=== PATIENT | male | born 1955 | race Caucasian/White ===

== ENCOUNTER → 2019-12-17 09:35 | Outpatient (BNVA) | payer OTHER, SELFPAY | PROVIDERS: PCP Nurse Practitioner Family; Visit Provider Nurse Practitioner Family | DX: B35.6 Tinea cruris (principal); Z51.81 Encounter for therapeutic drug level monitoring; E78.5 Hyperlipidemia, unspecified; K21.9 Gastro-esophageal reflux disease without esophagitis | CPT/HCPCS: 80061; 80076 ==

== ENCOUNTER → 2020-09-22 10:25 | Outpatient (BNVA) | payer OTHER, SELFPAY | PROVIDERS: PCP Nurse Practitioner Family; Visit Provider Nurse Practitioner Family | DX: M10.9 Gout, unspecified (principal); M25.50 Pain in unspecified joint | CPT/HCPCS: 84550 ==

== ENCOUNTER 2021-07-31 09:52 | Outpatient (CLI) | payer OTHER, SELFPAY ==
[2021-07-31 10:23] VITALS: BMI 26.6
--- NOTE | 2021-07-31 10:24 | ECG_ITS ---
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 Interpretive Statements NAME OF STUDY: LEXISCAN SESTAMIBI STRESS TEST INDICATION: [Chest Pain, ] Procedure: At the baseline, the blood pressure was 134/73 mmHg with a heart rate of 59bpm. The electrocardiogram showed sinus bradycardia, normal axis with normal ST and T's. The Lexiscan was infused over a period of 20 seconds. A total of 0.4 mg of Lexiscan was infused. The stress phase was continued for a total of 5 minutes. Heart rate was at the end of stress phase was 71 bpm and a blood pressure of 105/64 mmHg. The EKG at the peak infusion revealed since normal sinus rhythm with no significant ST-T wave changes. Sestamibi was injected 20 seconds after the Lexiscan infusion. Blood pressure at the end of recovery phase was 122/66 mmHg with a heart rate of 74bpm. Conclusion: 1. Normal EKG response to Lexiscan infusion 2. No Lexiscan induced chest pain or cardiac arrhythmia. 3. Normal blood pressure and heart rate response. 4. Sestamibi/sestamibi perfusion scan pending; see separate report. Electronically Signed On 08-03-2021 10:10:20 SYSTEMS PROGRAM MANAGER by Db Cavazos M.D. [email or web address]
--- NOTE | 2021-07-31 10:24 | NMCV_ITS ---
NM cheo perf SPECT r/s* [id number] Murray Barron Age: 65 Gender: M : 1955 Exam Date: 07/31/2021 10:24 Ordering Phys: Lily Ro Technologist: HAWK Nugent Exam Location: [facility] Indications: CHEST PAIN STRESS TEST Please see separate stress test report in [facility] for full findings IMAGE PROTOCOL Rest/Stress 1 Dobutamine Day Radiopharmaceutical Dose (mCi) Administration Site Administered by Rest: Tc-99m 10.4 IV HAWK Lal Sestamibi Stress:Tc-99m 32.6 IV HAWK Nugent Sestamiheather Rest: 31-Jul-2021 60 Discovery 630 Stress: 31-Jul-2021 30 Discovery 630 0.4mg Lexiscan. Images obtained in supine and prone position. SPECT RESULTS Technical Quality: Excellent Raw Data Analysis: Normal Image Corrections: No attenuation or motion correction applied Summed Stress Score: 3 Summed Rest Score: 0 Summed Difference Score: 3 PERFUSION FINDINGS There is small to medium sized reversible perfusion defect in the inferior and inferolateral wall. This is consistent with ischemia in this territory. FUNCTIONAL RESULTS (calculated via Gated SPECT) Stress Image LV EF (%): 57 Stress EDV (mL):112 TID: 1.01 Stress ESV (mL):48 FUNCTIONAL FINDINGS: There is normal left ventricular systolic function. IMPRESSIONS 1. Abnormal myocardial perfusion imaging with ischemia noted in inferior and inferolateral page. 2. LV systolic function is normal Db Cavazos MD (Electronically Signed) Final Date: 01 August 2021 20:10 S
[2021-07-31] MEDS: regadenoson 0.4 Mg/5 ml Syringe IVP (12:23)
[2021-07-31 12:26] VITALS: BP 111/67; PULSE 72
== END 2021-07-31 09:53 | disposition home or self-care (01) ==
LOC: CDL 09:54
PROVIDERS: PCP Registered Nurse; Visit Provider Nurse Practitioner Family
DX: R07.9 Chest pain, unspecified (principal)
CPT/HCPCS: 78452; 93017; A9500; J2785

== ENCOUNTER → 2021-09-04 10:49 | Outpatient (BNVA) | payer OTHER, SELFPAY | PROVIDERS: PCP Registered Nurse; Visit Provider Internal Medicine Cardiovascular Disease | DX: Z01.812 Encounter for preprocedural laboratory examination (principal); Z20.822 Contact with and (suspected) exposure to COVID-19 | CPT/HCPCS: 36415; 80048; 85025; 85610; 87635 ==

== ENCOUNTER 2021-09-10 14:24 | Observation (INO) | payer OTHER, SELFPAY ==
[2021-09-04 10:37] LABS: Basophils # 0.1 10^3/uL (0.0-0.1); Basophils % 1.2 %; Eosinophils # 0.3 10^3/uL (0.0-0.8); Eosinophils % 4.6 %; Hematocrit 46.1 % (42.0-52.0); Hemoglobin 15.6 g/dL (11.7-16.6); Lymphocytes # 1.7 10^3/uL (0.8-4.8); Lymphocytes % 29.5 %; Mean Corpuscular HGB Conc 33.8 g/dL (30.0-36.0); Mean Corpuscular Volume 91.5 fl (80-94); Mean Platelet Volume 9.3 fL (7.4-10.4); Monocytes # 0.7 10^3/uL (0.2-0.9); Monocytes % 11.8 %; Neutrophils # 3.09 10^3/uL (1.8-7.7); Neutrophils % 52.6 %; Nucleated Red Blood Cells % 0 %; Platelet Count 253 10^3/cmm (130-400); Red Blood Count 5.04 10^6/uL (4.1-5.3); Red Cell Distribution Width 12.2 % (12.1-15.1); White Blood Count 5.9 10^3/uL (4.0-10.0)
[2021-09-04 10:52] LABS: INR 1.02 (0.83-1.21); Prothrombin Time (Patient) 13.8 Seconds (12.0-15.1)
[2021-09-04 10:56] LABS: Anion Gap 11.3 (5-19); Blood Urea Nitrogen 12 mg/dL (8-23); Calcium 8.9 mg/dL (8.5-10.5); Carbon Dioxide 28 mmol/L (22-29); Chloride 102 mmol/L (98-107); Glomerular Filtration Rate 136.1 mL/min (90-130); Glucose 110 mg/dL (65-115); Osmolality Calculated 284 mOsm/kg (285-295); Potassium 4.3 mmol/L (3.5-5.1); Sodium 137 mmol/L (136-145)
[2021-09-10] VITALS (37 sets, daily range): BP systolic 103–138; BP diastolic 55–87; PULSE 41–72; RESP 7–29; TEMP 36.7–37; O2SAT 92–95; BMI 26.1
[2021-09-10] MEDS: diphenhydrAMINE 50 mg Capsule PO (09:55)
--- NOTE | 2021-09-10 10:00 | XACV_ITS ---
Ht: 175 cm Wt: 80 kg BSA: 1.99 m2 Gender: Male : 1955 Any Known Allergies: No known allergies Exam Priority: Routine Procedure(s): Procedure Description: Diagnostic procedure Procedure Description: PCI procedure Procedure Description: Left Heart Catheterization Procedure Description: Drug Eluting Coronary Stent Procedure Description: PTCA Cesar CROWDER; Diagnostic Cath Status: Elective Diagnostic Findings * Left Main has no disease. * Mid Left Anterior Descending: luminal irregularities 20% stenosis, KARLO: 3 flow. * Proximal Right Coronary Artery to Mid Right Coronary Artery: total occlusion, KARLO: 0 flow. * Mid Circumflex: severe 90% stenosis, KARLO: 0 flow. * First Obtuse Marginal Branch Segment: significant 80% stenosis, KARLO: 0 flow. * Coronary angiography shows right dominance. Interventional Findings * Mid Circumflex: 90% stenosis treated with a AB TREK 2.50X12 RX BALLOON, BELEM Banks BRIAN 3.5X18 MTATHEW, and MDSilvana FITZGERALD EUPHORA RX 3.00C46NT BALLOON. 0% residual stenosis, KARLO: 3 flow. * First Obtuse Marginal Branch Segment: 80% stenosis treated with a AB MINI TREK 2.00X12 RX BALLOON. 0% residual stenosis, KARLO: 3 flow. Conclusions 1. Mid circumflex was fixed for high-grade 90% stenosis, moderate size and caliber obtuse marginal was jailed. We were able to cross through the stent struts and ballooned the ostium of the obtuse marginal since there was a plaque shift with more than 80% ostial significant lesion. After balloon angioplasty 70 2. - 3. 80% lesion improved to 20% 4. . Excellent angiographic result with KARLO-3 flow was achieved 5. . 6. There is total occlusion coronary artery disease with three vessel disease. 7. Mid Circumflex was treated with a Balloon, Drug Eluting Stent, and Balloon. 8. First Obtuse Marginal Branch Segment was treated with a Balloon. Recommendations * Continue current medical management and risk factor modification. Interventional RX Recommendation: PCI w/o planned CABG Diagnostic RX Recommendation: PCI w/o planned CABG Clinical Evaluation EBL: 5mL-10mL Procedural Details Procedure Consent Obtained. Current Diagnosis : Chest Pain. Pre-Procedure Time Out. Identified patient by full name and date of as verbalized by the patient/guarantor. Does the consent match the physician's order: Yes. Accurate & Complete Informed Consent: Yes. Inpatient/Outpatient History & Physical on Chart: Yes. If H&P is completed, is and addenduem needed: Yes; If yes, is the addendum complete: N/A. Visualize and Verify Site with Patient/Guarantor: N/A. Relevant Radiology Images available: Yes. Pre-op teaching completed and patient verbalized understanding. The risks, benefits, and alternatives of sedation and/or procedure were discussed by physician. The patient agrees to continue. Procedure started. [facility] Clinical Fraility Score: 3: Managing Well. Maintenance Chief Indications: Suspected CAD. Chest Pain Symptom Assessment: Typical Angina Symptoms. Correct patient, site and procedure confirmed by cath team. Current diagnosis: Chest Pain. PERRLA. 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 Lungs clear x 5 lobes. A 20 gauge IV was started in the right anticubital using aseptic technique. IV Fluids: 0.9% NaCl at KVO. 0 mL infused prior to seed laboratory technician. Pre Procedural Pulses: bilateral dorsalis pedis was 3+. Pre Procedural Pulses: bilateral posterior tibial was 3+. Pre Procedural Pulses: bilateral radial was 3+. Oxygen started at 2liters/min via nasal canula. right groin was prepped with chloroprep then draped in the usual sterile fashion. right radial was prepped with chloroprep then draped in the usual sterile fashion. Physician notified. Baseline sample Acquired. HR: 43 BPM. Physician arrived. RT Jayla(R) was relieved by RT Christian as monitoring person. Physician scrubbed in. Immediate Pre-Procedure Time Out. Correct Patient: Yes; Correct Procedure: Yes; Correct Site: Yes; Correct Patient Position: Yes; Correct Supplies: Yes; Dried Flammable Prep: Yes; Blood Products Available: N/A;. Lidocaine 1% infiltrated to the right radial. Arterial access obtained. A 5 saudi arabian TIG catheter in over wire. Multiple views taken of left coronary artery. Catheter out. 6 saudi arabian XB 3 guide catheter was inserted over the wire. [place] guidewire was advanced through the guide catheter to lesion in the mid Circ. Inflation number : 1 A AB TREK 2.50X12 RX BALLOON was prepped and advanced across the Mid CX , then inflated to 14 MALLORIE for 0:19 seconds. Inflation number: 2 The AB TREK 2.50X12 RX BALLOON was reinflated across the Mid CX, to 14 MALLORIE for 0:17 seconds. Balloon out. Inflation Number : 3 A MDT R BRIAN 3.5X18 MATTHEW -Lot Number# [id number] exp date: 01-27-2024 was prepped and advanced across the Mid CX. The stent was deployed at 14 MALLORIE for 0:27 seconds. Stent balloon out over wire. Inflation number : 1 A AB MINI TREK 2.00X12 RX BALLOON was prepped and advanced across the 1st Ob Pili , then inflated to 8 MALLORIE for 0:15 seconds. Inflation number: 2 The AB MINI TREK 2.00X12 RX BALLOON was reinflated across the 1st Ob Pili, to 8 MALLORIE for 0:12 seconds. Balloon out. Inflation number : 4 A MDT NC EUPHORA RX 3.89J05UT BALLOON was prepped and advanced across the Mid CX , then inflated to 8 MALLORIE for 0:15 seconds. Inflation number: 5 The MDT NC EUPHORA RX 3.48J34XH BALLOON was reinflated across the Mid CX, to 12 MALLORIE for 0:21 seconds. Balloon out. 6 saudi arabian JR 4 guide catheter was inserted over the wire. SVG to RCA occluded. Run[place] guidewire was advanced through the guide catheter to lesion in the mid RCA. Wire out. Guide catheter out. ACT drawn. Results 184 seconds. Therapeutic limits - pre-heparin administration 90-150 seconds and monitoring heparin during a vascular procedure >250 seconds. TR band placed. Hemostasis obtained. Post Procedure: Pulses reassessed and unchanged. PERRLA. 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 No VTE prophylaxis required. Contrast type used: Omnipaque 300 mgI/mL, 500 mL bottle. Contrast Material : Omnipaque 233 ml. Medication's Wasted: Nitro = 49.4 mg. Medication's Wasted: Heparin = 2000 units. Medication's Wasted: Other = fentanyl 25 mg. Total IV fluids: 123 mL. PCI Indication: significant mid CX. Post-op diagnosis: chronic and occluded mid RCA. Complications: none. Estimated blood loss: 5mL-10mL. Responsiveness - Normal response to verbal stimuli; alert and oriented, PERRLA. Airway - Unaffected, no intervention required; spontaneous ventilation. Circulation: W/N/L, pulses unchanged. Nausea/Vomiting: N/A. Procedure completed. A TR Band was successful obtaining hemostatsis at the Right Radial artery insertion site. Patient transferred by bed to 1st floor. Vital chart was stopped. Access Site Site: Right Radial artery Sheath Size: 6 Fr Hemostasis Method: TR Band Hemostasis Success: Successful Procedure Medications Start: 1:05 PM Stop: 1:05 PM Medication: Versed Amount: 1 mg Route: I.V. Start: 1:05 PM Stop: 1:05 PM Medication: Fentanyl Amount: 50 mcg Route: I.V. Start: 1:15 PM Stop: 1:15 PM Medication: Nitrogylcerin Amount: 200 mcg Route: I.A. Start: 1:23 PM Stop: 1:23 PM Medication: Heparin Amount: 5000 units Route: I.V. Start: 1:23 PM Stop: 1:23 PM Medication: Heparin Amount: 4000 units Route: I.V. Start: 1:30 PM Stop: 1:30 PM Medication: Aggrastat 12.5 mg/250 mL Amount: 40 ml Route: I.V. bolus Start: 1:30 PM Stop: 1:30 PM Medication: Aggrastat 12.5 mg/250 mL Amount: 14.4 ml/hr Route: I.V. drip Start: 1:46 PM Stop: 1:46 PM Medication: Versed Amount: 1 mg Route: I.V. Start: 1:46 PM Stop: 1:46 PM Medication: Fentanyl Amount: 25 mcg Route: I.V. Start: 1:55 PM Stop: 1:55 PM Medication: Nitrogylcerin Amount: 200 mcg Route: I.A. Start: 2:12 PM Stop: 2:12 PM Medication: Heparin Amount: 3000 units Route: I.V. Start: 2:18 PM Stop: 2:18 PM Medication: Plavix Amount: 600 mg Route: P.O. Start: 2:19 PM Stop: 2:19 PM Medication: Aspirin Amount: 325 mg Route: P.O. I, the attending physician, have reviewed and verified all procedure medications. Yes, all medications given per verbal order History/Risk Factors Hypertension: Yes Dyslipidemia: No Peripheral Arterial Disease (PAD): No Myocardial Infarction (RI): No Obesity: No Renal Disease: No Tobacco Use: Current/Recent(w/in 1 year) Prior Interventions PCI: No CABG: No Valve Surgery: No Report Signatures Finalized by Madi Guerrero MD on 09/15/2021 08:07 PM
--- NOTE | 2021-09-10 13:04 | W.PM.OPSUD ---
Surgery/Procedure H&P Update DATE OF PROCEDURE: September 10, 2021 DATE H&P PERFORMED: 08/24/21 H&P UPDATE INFORMATION: I have reviewed H&P completed within last 30 days, I have examined patient prior to procedure and No changes to prior documentation PREOP DIAGNOSIS: Chest pain/abnormal stress test PLANNED PROCEDURE: Operation Date: 09/10/21 10:00 Proposed Procedures p Cardiac Catheterization(Left) - Madi Guerrero MD PATIENT REASSESSED PRIOR TO SEDATION, WITH NO CHANGE NOTED: Yes PHYSICAL EXAM: alert, oriented x 3 and clear to auscultation bilaterally AIRWAY EVAL/ANESTHESIA PLAN: ASA II and Risks, benefits & alternatives of sedation and/or procedure discussed ADDITIONAL INFORMATION: Patient has been explained all risk benefit and alternative for the procedure. Patient understand risk for contrast-induced nephropathy stroke major minor bleed urgent emergent bypass surgery vascular surgery transfusion he would like to proceed with it, he is a candidate for DAPT
--- NOTE | 2021-09-10 16:28 | PC.NURSE ---
Aggrastat drip turned off per written order from cardiac cath. Pls see cardiac crime laboratory analyst notes. TR band intact. no hematoma or bleeding. radial pulse is palpable +3.
[2021-09-10] MEDS: isosorbide mononitrate ER 30 mg Tablet 15 MG PO (17:32)
--- NOTE | 2021-09-10 19:20 | PC.NURSE ---
Shift Note 1415pm- Pt arrived from label pinker via wheelchair. Denies any chest pain or discomfort post cardiac cath. TR band intact on right wrist. No hematoma, swelling or bleeding. Radial pulse is palpable+3. Aggrastat drip running as ordered. IVF at 75 running on right FA IV as ordered. 1530 pm- started to let air out from TR band. Pt started to ooze some blood. Instill 3 ml of air. No hematoma. 1545 pm- remove 1 ml air out. Pt strarted to have minimal ooze. No hematoma. Frequent safety and comfort rounds continue. Orders and/or nursing care completed as indicated. Patient monitored for response to intervention and treatment(s). Education provided includes[]. Patient and/or primary care sales representative [ResponseToTeaching]. Will continue to monitor.
--- NOTE | 2021-09-10 22:40 | PC.NURSE ---
TR band removed from right wrist at 2230. Air was removed slowly due to slight oozing. Dressing placed. Dressing is currently c/d/i. No oozing or hematoma noted at this time. Patient educated on post-cath activity restrictions and verbalized understanding. VSS. Radial pulse present. Distal skin color and temp WNL.
[2021-09-11 00:21] VITALS: BP 117/57; PULSE 41; RESP 9
[2021-09-11 03:12] VITALS: PULSE 45
[2021-09-11 03:38] LABS: Basophils # 0.1 10^3/uL (0.0-0.1); Basophils % 1.1 %; Eosinophils # 0.5 10^3/uL (0.0-0.8); Eosinophils % 5.7 %; Hematocrit 43.1 % (42.0-52.0); Hemoglobin 14.5 g/dL (11.7-16.6); Lymphocytes # 2.4 10^3/uL (0.8-4.8); Lymphocytes % 25.7 %; Mean Corpuscular HGB Conc 33.6 g/dL (30.0-36.0); Mean Corpuscular Hemoglobin 30.7 pg (28.0-34.0); Mean Corpuscular Volume 91.3 fl (80-94); Mean Platelet Volume 9.7 fL (7.4-10.4); Monocytes # 0.9 10^3/uL (0.2-0.9); Monocytes % 9.9 %; Neutrophils # 5.37 10^3/uL (1.8-7.7); Neutrophils % 57.2 %; Nucleated Red Blood Cells % 0 %; Platelet Count 219 10^3/cmm (130-400); Red Blood Count 4.72 10^6/uL (4.1-5.3); Red Cell Distribution Width 12.5 % (12.1-15.1); White Blood Count 9.4 10^3/uL (4.0-10.0)
--- NOTE | 2021-09-11 03:40 | PC.NURSE ---
Right wrist site/dressing WNL.
[2021-09-11 03:48] VITALS: BP 121/67; PULSE 48; RESP 18; TEMP 36.6; O2SAT 95
[2021-09-11 04:03] LABS: Anion Gap 14.9 (5-19); Blood Urea Nitrogen 19 mg/dL (8-23); Calcium 8.1 mg/dL (8.5-10.5); Carbon Dioxide 22 mmol/L (22-29); Chloride 105 mmol/L (98-107); Glomerular Filtration Rate 136.1 mL/min (90-130); Glucose 96 mg/dL (65-115); Osmolality Calculated 288 mOsm/kg (285-295); Potassium 3.9 mmol/L (3.5-5.1); Sodium 138 mmol/L (136-145)
[2021-09-11 07:52] VITALS: BP 124/70; PULSE 60; RESP 19; TEMP 36.6; O2SAT 95
[2021-09-11] MEDS: isosorbide mononitrate ER 30 mg Tablet 15 MG PO (08:59)
[2021-09-11] MEDS: clopidogrel 75 mg Tablet PO (09:00)
[2021-09-11] MEDS: aspirin 81 mg EC Tablet PO (09:00)
[2021-09-11] MEDS: atorvastatin 40 mg Tablet 20 MG PO (09:00)
--- NOTE | 2021-09-11 10:31 | PM.SDS ---
Short Stay Summary Providers Date of Admit/Discharge: 09/15/21 Attending Provider: Madi Guerrero MD Primary Care Provider: JOSE ARMANDO Momin Chief Complaint: [id number]/ [id number] abnormal result of other cardiovas HPI History of Present Illness Murray Barron is a 65 year old male past medical history significant for hypertension hyperlipidemia for abnormal stress test and worsening of shortness of breath along with chest pain underwent angiogram he was noted to have chronically occluded mid RCA while significant mid 80 to 90% circumflex stenosis. It was treated with drug-eluting stent. RCA was thought to be chronically occluded therefore decided to manage it medically. Patient tolerated procedure well and recovered over the next 24 hours. He is doing fine from cardiovascular perspective and being transferred home. Review of Systems Musc: Denies: joint warmth Home Meds/Allergies Home Medications and Allergies Home Medications Medication Instructions Recorded Confirmed Type vitamin D3 250 mcg (10,000 1 cap PO DAILY 08/24/21 09/09/21 History unit)-vitamin K2 45 mcg capsule Allergies Allergy/AdvReac Type Severity Reaction Status Date / Time No Known Allergies Allergy Verified 07/24/21 11:01 PFSH Acute PFSH: Medical History (Updated 09/12/21 @ 00:01 by ) Essential hypertension History of neuropathy Tobacco abuse Social History Smoking and tobacco status: current every day smoker (Chew) smokeless tobacco Second hand smoke exposure: Yes Alcohol intake: never Adopted: No Caregiver/support person: No Lives independently: No Current occupational status: employed Sexually active: Yes Current gender identity: Male Dietary Habits: Current diet type/program: regular Vitals/I&O/Wt Last Vital Signs Temp 97.9 F 09/11/21 07:52 Pulse 60 09/11/21 07:52 Resp 19 H 09/11/21 07:52 BP 124/70 09/11/21 07:52 Pulse Ox 95 09/11/21 07:52 09/10/21 09/11/21 09/11/21 22:59 06:59 14:59 Intake Total 360 / 360 300 / 660 245 / 245 Output Total 750 / 750 Balance 360 / 360 300 / 660 -505 / -505 Weight last 48 hrs Weight 177 lb Physical Exam Narrative: EXAM NARRATIVE: GENERAL: Patient is alert, awake and oriented x3. NECK: No jugular vein distension. HEENT: No cyanosis. No icterus. No pallor. HEART: Regular S1 and S2. No murmur, rub or gallop. LUNGS: Clear to auscultate bilaterally. ABDOMEN: Soft, nontender and nondistended. Positive bowel sounds. No guarding, rebound or tenderness. CENTRAL NERVOUS SYSTEM: Grossly nonfocal. EXTREMITIES: Lower extremities without edema bilaterally. 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 Routin e Exams 09/10/21 10:00 Taken Discharge Plan Discharge Patient Disposition: Home Condition: Stable Prescriptions: New clopidogrel 75 mg Tablet 75 mg PO DAILY Qty: 90 RF: 4 Continued vitamin D3-vitamin K2 250 mcg (10,000 unit)-45 mcg capsule 1 cap PO DAILY RF: 0 isosorbide mononitrate 30 mg tablet extended release 24 hr 15 mg PO BID Qty: 90 RF: 3 aspirin [Adult Low Dose Aspirin] 81 mg tablet,delayed release (DR/EC) 81 mg PO DAILY Qty: 90 RF: 3 nitroglycerin [Nitrostat] 0.4 mg tablet, sublingual 0.4 mg sublingual Q5M PRN (Reason: chest pain) Qty: 25 RF: 3 simvastatin 40 mg tablet 40 mg PO DAILY Qty: 90 RF: 3 Discontinued omeprazole 20 mg capsule,delayed release(DR/EC) See Rx Instructions .ROUTE .COMPLEX Qty: 90 RF: 4 Discharge Orders: Discharge Order (Routine); Ordered 09/11/21 Ordered By: Madi Guerrero Referrals: Madi Guerrero MD [Physician] - 11/18/21 2:30 pm (You will have an appointment with Dr. Guerrero on November 18 at 2:30 PM. If you need to reschedule the appointment pls call them.) Chery Patiño FNP [Nurse Practitioner] - 09/17/21 2:00 pm (You will have a follow-up appointment with Chery Patiño on September 17 at 2 pm. Pls call the clinic if you need to reschedule your appointment.) Discharge Diet: Diabetic Discharge Activity: Increase activity as tolerated Patient Instructions: Clopidogrel (By mouth), Coronary Angioplasty (DC), Post Angiogram Home Care Instructions Activity Restrictions/Additional Instructions: Follow-up with Ms. Chery Patiño in follow-up with Dr. Guerrero in 6 to 8 weeks. Please do not interrupt clopidogrel aspirin for at least 2-year. Attestations Medical Necessity Statement*: Patient can be discharged home. Time Spent in Patient Care*: less than 30 min Specific Discharge Activities: Specific discharge activities: educating patient Quality Metrics Clinical Quality Measures: During this hospital stay, did patient experience: None Coding Level of Care Code Established Pt Acute Dipper Machine Operator for Chg Fwd Patient Type Established History Detailed Exam Detailed Medical Decision Making Moderate Complexity
[2021-09-11 12:00] VITALS: BP 137/73; PULSE 79; RESP 20; O2SAT 95
--- NOTE | 2021-09-11 12:48 | PC.CHAP ---
Pastoral Care Encounter/Spiritual Assessment Type of Contact [] Declined steam plant control room operator visit [] Patient/Family/Request visit [] Outpatient visit [] Follow-up visit [] Physician referral [] Code/Alert [xx] Routine visit [] Staff referral [] Actively dying [] Patient sleeping [] Family support [] [] Out of room [] Palliative care [] [] Receiving care in room [] Pre-surgical visit [] Trauma [] Long length of stay [] ICU visit [] Other: Relational/Emotional Strength [xx] Patient feels connected with others/family/visitors/staff [] Distress [] Loneliness/isolation [] Abandonment Spirituality of Patient [] Person of [place] [] Attends Lutheran of their [place] [xx] Believes in Prayer [] Reads Bible or Denominational materials [] There are Spiritual issues to be addressed [employer]er Interventions [xx] Prayer [xx] Active listening [xx] Non-anxious presence [] Spiritual/emotional support [] Crisis/trauma care [] Spiritual counseling [] Bereavement support [] Provided bereavement packet [] Provided Bible/devotional materials [] Provided toy/stuffed animal, coloring book to patient or family member [] Provided Communion [] Anointing/Leiter [] Salvation [xx] Completed spiritual assessment [] Other: Impact on Illness or Injury [] Angry [] Fearful [] Anxious [] Often cries [] Exhaustion [] Unable to work [] Unable to attend episcopalian [] Unable to walk/stand [] Unable to read [] Unable to drive [] Unable to eat/drink [] Unable to sleep [] Unable to be with family [] Patient intubated [] Other: Summary Patient's was present. They are expecting patient to be discharged so she can take him home. Time spent with patient 3 minutes
--- NOTE | 2021-09-11 13:20 | PC.NURSE ---
Pt discharged home. IV removed no redness or swelling noted. Pts discharge instructions given along with prescriptions and follow up appointments. Pt had no c/o pain or discomfort at the time of discharge.
== END 2021-09-11 13:10 | disposition home or self-care (01) ==
LOC: CSU 14:24
PROVIDERS: Admitting Provider Internal Medicine Cardiovascular Disease; PCP Registered Nurse; Visit Provider Internal Medicine Cardiovascular Disease
DX: I25.10 Atherosclerotic heart disease of native coronary artery without angina pectoris (principal); R07.9 Chest pain, unspecified; R94.39 Abnormal result of other cardiovascular function study; I10 Essential (primary) hypertension; E78.5 Hyperlipidemia, unspecified; F17.220 Nicotine dependence, chewing tobacco, uncomplicated; Z79.82 Long term (current) use of aspirin
CPT/HCPCS: 36415; 80048; 85025; 85347; 93455; C1725; C1769; C1874; C1887; C1894; C9600; G0378; J1644; J2250; J3010; J3246; J3490; J7030; Q0163; Q9967

== ENCOUNTER → 2021-09-17 14:53 | Outpatient (BNVA) | payer OTHER, SELFPAY | PROVIDERS: PCP Registered Nurse; Visit Provider Nurse Practitioner Family | DX: I25.10 Atherosclerotic heart disease of native coronary artery without angina pectoris (principal) | CPT/HCPCS: 80048 ==

== ENCOUNTER → 2021-12-11 10:03 | Outpatient (BNVA) | payer OTHER, SELFPAY | PROVIDERS: PCP Registered Nurse; Visit Provider Internal Medicine Cardiovascular Disease | DX: I25.119 Atherosclerotic heart disease of native coronary artery with unspecified angina pectoris (principal); I10 Essential (primary) hypertension; E78.5 Hyperlipidemia, unspecified; Z72.0 Tobacco use | CPT/HCPCS: 80061; 80076 ==

== ENCOUNTER 2022-08-05 08:17 | Day surgery (SDC) | payer OTHER, SELFPAY ==
[2022-08-04 13:27] VITALS: BMI 26.9
[2022-08-05 08:39] VITALS: BP 131/72; PULSE 52; RESP 16; TEMP 36.6; O2SAT 98
[2022-08-05] MEDS: sodium chloride 0.9% 1,000 ML 30 ML IV (08:53)
--- NOTE | 2022-08-05 10:37 | ANES.PREANE2 ---
Pre-Anesthetic Assessment Height/Weight: Height 1.75 m Weight 82.554 kg Temp Pulse Resp BP Pulse Ox O2 Del Method 97.8 F 52 L 16 131/72 98 08/05/22 08:39 08/05/22 08:39 08/05/22 08:39 08/05/22 08:39 08/05/22 08:39 08/05/22 08:39 Preop Diagnosis: Excisional biopsy lower gingivobuccal sulcus oral tissue lesion Operation Date: 08/05/22 09:50 Proposed Procedures p excision of gingival buccal sulcus lower lip lesion with frozen section 54434,K13.70 possible frozen biopsy(Not Applicable) - Sal Pineda MD Familial anesthetic complications: none Was Beta Nissa taken within 24 hours: N/A Was Clonidine taken within 24 hours: N/A Last intake: Intake Last Liquid Date 08/04/22 Last Liquid Time 18:00 Last Solid Date 08/04/22 Last Solid Time 18:00 Last Intake: 18:00 Social Alcohol (6pk day) and Tobacco (chew 50+ years) Exam alert, oriented x 3, clear to auscultation bilaterally and regular rate & rhythm Airway Submandibular: within normal limits Cervical ROM: within normal limits Mallampati: Class II Dentition: false Pulmonary None reported CV/HEM Coronary Artery Disease, Hypertension and Myocardial Infarction (PTCA 2020 no cp/sob since) None reported Hepatic None reported GI Gastroesophageal Reflux Disease (occ food related) Metabolic None reported Musc/skel Lower Back Pain and Osteoarthritis/DJD Neuropsych None reported Anesthetic Plan ASA status: 3 Anesthesia: General Risk of > 500 ml blood loss (7ml/kg in children): No Medications/Allergies Home Medications Medication Instructions Recorded Confirmed Last Taken Type aspirin 81 mg tablet,delayed 81 mg PO DAILY #90 tabs 08/24/21 08/05/22 08/01/22 Rx release (Adult Low Dose Aspirin) isosorbide mononitrate 30 mg 15 mg PO BID #90 tabs 08/24/21 08/05/22 08/04/22 Rx tablet,extended release 24 hr nitroglycerin 0.4 mg sublingual 0.4 mg sublingual Q5M PRN chest 08/24/21 08/04/22 09/09/21 Rx tablet (Nitrostat) pain #25 tabs vitamin D3 250 mcg (10,000 1 cap PO DAILY 08/24/21 08/05/22 08/04/22 History unit)-vitamin K2 45 mcg capsule clopidogrel 75 mg tablet 75 mg PO DAILY #90 tabs 09/11/21 08/04/22 08/01/22 Rx rosuvastatin 40 mg tablet (Crestor) 40 mg PO DAILY #90 tabs 12/11/21 08/05/22 08/04/22 Rx pantoprazole 20 mg tablet,delayed 20 mg PO DAILY #90 tabs 06/18/22 08/05/22 08/04/22 Rx release hydrocodone 5 mg-acetaminophen 300 1 tab PO Q4H PRN pain #30 tabs 08/05/22 Unknown Rx mg tablet Allergies Allergy/AdvReac Type Severity Reaction Status Date / Time No Known Allergies Allergy Verified 08/04/22 13:24 Current Medications Generic Name Dose Route Start Last Admin Trade Name Freq PRN Reason Stop Dose Admin Sodium Chloride 1,000 mls @ 30 mls/hr 08/05/22 08:30 08/05/22 08:53 Sodium Chloride 0.9% IV 08/06/22 08:29 30 mls/hr .Q24H TAI Administration PFSH Anesthesia Medical History Arthritis Atherosclerosis of coronary artery Dyslipidemia Essential hypertension History of neuropathy Tobacco abuse Social History Smoking and tobacco status: current every day smoker (Chew) smokeless tobacco Second hand smoke exposure: Yes Alcohol intake: never Adopted: No Caregiver/support person: No Lives independently: No Current occupational status: employed Sexually active: Yes Current gender identity: Male Data Anesthesia Cardiac Studies: Sestamibi Stress Test (Cardiology) 07/31/21
--- NOTE | 2022-08-05 10:37 | W.PM.OPSUD ---
Surgery/Procedure H&P Update DATE OF PROCEDURE: August 05, 2022 DATE H&P PERFORMED: 07/26/70 H&P UPDATE INFORMATION: I have reviewed H&P completed within last 30 days, I have examined patient prior to procedure and No changes to prior documentation CHANGES TO PREVIOUS DOCUMENTATION: No changes PREOP DIAGNOSIS: Excisional biopsy lower gingivobuccal sulcus oral tissue lesion PRIMARY INDICATION FOR PROCEDURE: Abnormal lesion anterior gingival buccal sulcus adjacent to dental post PLANNED PROCEDURE: Operation Date: 08/05/22 09:50 Proposed Procedures p excision of gingival buccal sulcus lower lip lesion with frozen section 82781,K13.70 possible frozen biopsy(Not Applicable) - Sal Pineda MD
[2022-08-05] MEDS: ceFAZolin 2,000 MG in sodium chloride 0.9% (plus) 50 ML 100 MG IV (10:49)
--- NOTE | 2022-08-05 11:43 | P.OP_ITS ---
Operative Report Date of procedure: August 05, 2022 Pre-op diagnosis: Preop Diagnosis Excisional biopsy lower gingivobuccal sulcus oral tissue lesion Post-op diagnosis: Same Post-op findings: Indurated indented mucosal lesion with frozen section showing chronic inflammation and no malignancy. Procedure done: Excision of inner lower lip lesion Implants: No implants Specimens removed/disposition: Same Pathology: Inner surface of lower lip with indentation and discoloration anterior to dental post. Frozen section returned as chronic inflammation with no malignancy Surgeon: Sal Pineda MD Anesthesia: General and Local Estimated blood loss: 10 mL Complications: No complications encountered Findings: Patient has a whitish discolored raised indurated and indented anterior inner lower lip lesion directly across from an irregular dental post that extends more anteriorly rather than superiorly. With the patient chewing tobacco is felt that this needed to be checked for potential malignancy. Brief History: 66-year-old male patient who chews tobacco and is edentulous and has pins or posts for his lower dentition to snap onto. The anteriormost post in the midline extends more anteriorly and it has caused an indentation with what appears to be inflammation and probable fibroma on the inner surface of the lower lip mucosa near the gingivobuccal sulcus. This will be excised for diagnostic purposes. The procedure its risks and complications were explained and understood in detail. Informed consent was granted and witnessed. Risks included bleeding infection numbness scarring swelling bruising recurrence and need for additional treatment. Anesthetic risks also understood. Procedure: Description of procedure: The patient was placed on the operating table in the supine position. Adequate general endotracheal tube anesthesia was obtained. He was repositioned into a semirecumbent position. A timeout was accomplished identifying the patient date of plan procedure allergies fire risk and medications given. With all in agreement the procedure continued. The patient had his inner lower lip examined and infiltration with 2% Xylocaine with 1- 100,000 epinephrine around the lesion and numbing the mental nerves in a field block. A total of 5.1 mL of 2% Xylocaine with 1 100,000 epinephrine was utilized. Patient was then prepped and draped in usual fashion. After several minutes a 15 blade was used to excise completely around the whitish firm indented tissue which caused greater than 1 cm defect. This was sent for frozen section diagnosis. While that was pending pressure was applied to the defect. Bleeding was under control with the epinephrine and the pressure. When the specimen returned as chronic inflammation with no evidence of malignancy found the defect was closed using 3-0 Vicryl suture. An inferior gap was left open to prevent hematoma formation. The mouth was suctioned and the face cleansed and the patient was returned to anesthesia for wake-up and extubation. The patient tolerated the procedure well had an estimated blood loss of 10 mL and arrived in recovery in stable condition.
[2022-08-05 11:50] VITALS: BP 142/65; PULSE 72; RESP 16; TEMP 36.6; O2SAT 96
[2022-08-05 11:55] VITALS: BP 134/64; PULSE 64; RESP 20; O2SAT 97
[2022-08-05 12:00] VITALS: BP 117/64; PULSE 63; RESP 22; TEMP 36.7; O2SAT 94
[2022-08-05 12:18] VITALS: BP 124/62; PULSE 67; RESP 18; TEMP 36.8; O2SAT 94
[2022-08-05 12:39] VITALS: BP 111/61; PULSE 94; RESP 18; TEMP 36.7; O2SAT 94
--- NOTE | 2022-08-05 15:28 | ANE.PACU2 ---
Inpatient post-anesthesia follow up: Airway intact: Yes Vital signs: Temperature 98.0 F Pulse Rate 94 Respiratory Rate 18 Blood Pressure 111/61 Pulse Oximetry 94 Oxygen Delivery Me thod Room Air Oxygen Flow Rate 7 Fraction of Inspir ed Oxygen Hydration adequate: Yes Nausea and vomiting: No Pain level: 2 Mental status: Baseline
== END 2022-08-05 12:45 | disposition home or self-care (01) ==
PROVIDERS: PCP Registered Nurse; Visit Provider Otolaryngology
PROC: (CPT 40810; principal; 2022-08-05 09:40)
DX: K13.70 Unspecified lesions of oral mucosa (principal); I25.10 Atherosclerotic heart disease of native coronary artery without angina pectoris; I10 Essential (primary) hypertension; I25.2 Old myocardial infarction; K21.9 Gastro-esophageal reflux disease without esophagitis; Z79.82 Long term (current) use of aspirin; M19.90 Unspecified osteoarthritis, unspecified site; E78.5 Hyperlipidemia, unspecified; F17.220 Nicotine dependence, chewing tobacco, uncomplicated
CPT/HCPCS: 40810; 88305; 88331; J0690; J1100; J2405; J2704; J3010; J3490; J7030

== ENCOUNTER → 2025-01-15 13:38 | Outpatient (BNVA) | payer MEDICARE, SELFPAY | PROVIDERS: PCP Registered Nurse; Visit Provider Internal Medicine | DX: I25.119 Atherosclerotic heart disease of native coronary artery with unspecified angina pectoris (principal); I10 Essential (primary) hypertension; E78.5 Hyperlipidemia, unspecified; Z72.0 Tobacco use | CPT/HCPCS: 99214 ==

== ENCOUNTER 2025-01-29 07:58 | Outpatient (CLI) | payer MEDICARE, SELFPAY ==
--- NOTE | 2025-01-29 | ECG_ITS ---
[facility] Test Date: 2025-01-29 Pat Name: Murray Barron Department: Room: Gender: Male Pharmacy Director: : 1955 Requested By: Db Cavazos Order Number: [id number] Mary Ellen MD: Alex Santillan M.D. Interpretive Statements Lung unchanged pre/post procedure; Intraprocedure shortess of breath; Symptoms resoled by discharge PROCEDURE: At the baseline, the EKG revealed sinus bradycardia with a heart rate of [address] Ts.. The baseline heart was 40 bpm with a blood pressue of 155/69 mm of Hg Lexiscan was infused over a period of 20 seconds. A total of 0.4 milligrams of Lexiscan was infused. The stress phase was continued for a total of 5 minutes. Heart rate at the end of the stress phase was 68 bpm with a blood pressure 128/66 mm of Hg. The EKG at the peak infusion revealed no significant changes. Sestamibi was injected 20 seconds after the Lexiscan infusion. Heart rate at the end of the recovery phase was 67 bpm with a blood pressure of 135/65 mm of Hg. CONCLUSION: 1. No significant EKG changes with the LexiScan infusion 2. No LexiScan induced chest pain or cardiac arrhythmia 3. Normal blood pressure and heart rate response 4. Sestamibi/sestamibi perfusion scan pending; see separate report. Electronically Signed On 02-04-2025 14:34:07 CDT by Alex Santillan M.D. [email or web address]
[2025-01-29 08:17] VITALS: BMI 26.4
--- NOTE | 2025-01-29 08:19 | NMCV_ITS ---
NM cheo perf SPECT r/s* [id number] Murray Barron Age: 69 Gender: M : 1955 Exam Date: 01/29/2025 08:59 Ordering Phys: Db Cavazos M.D ([email or web address]) Technologist: HAWK Mccann Exam Location: [facility] Indications: cp STRESS TEST Please see separate stress test report in [facility] for full findings IMAGE PROTOCOL Rest/Stress 1 Lexiscan Day Radiopharmaceutical Dose (mCi) Administration Site Administered by Rest: Tc-99m 10.6 IV HAWK Mccann Sestamibi Stress:Tc-99m 32.6 IV HAWK Lal Sestamibi Rest: 29-Jan-2025 60 Discovery 630 Stress: 29-Jan-2025 30 Discovery 630 0.4mg Lexiscan. Images obtained in supine and prone position. SPECT RESULTS Technical Quality: Good Raw Data Analysis: Normal Image Corrections: No attenuation or motion correction applied Summed Stress Score: 0 Summed Rest Score: 1 Summed Difference Score: 0 PERFUSION FINDINGS Uniform myocardial tracer uptake with no significant Perfusion normalities FUNCTIONAL RESULTS (calculated via Gated SPECT) Stress Image LV EF (%): 48 Stress EDV (mL):130 TID: 0.98 Stress ESV (mL):68 FUNCTIONAL FINDINGS: Segmental wall motion analysis revealing mild diffuse hypokinesia of the left ventricle IMPRESSIONS 1. Myocardial perfusion imaging revealing uniform myocardial tracer uptake with no significant perfusion abnormalities 2. Slightly diminished LV ejection fraction 48% 3. LV wall motion analysis revealing mild diffuse hypokinesia of the left ventricle 4. Mildly dilated LV cavity with an end-systolic volume of 68 mL Low probability for coronary ischemia, based on the above findings The above features may suggest some form of nonischemic cardiomyopathy Dr Alex Santillan MD FACC (Electronically Signed) Final Date: 29 Jan 2025 21:33 S
[2025-01-29] MEDS: regadenoson 0.4 Mg/5 ml Syringe IVP (09:43)
[2025-01-29 09:56] VITALS: BP 135/65; PULSE 65
== END 2025-01-29 07:59 | disposition home or self-care (01) ==
LOC: CDL 08:01
PROVIDERS: PCP Registered Nurse; Visit Provider Internal Medicine
DX: R07.9 Chest pain, unspecified (principal); R93.1 Abnormal findings on diagnostic imaging of heart and coronary circulation; I42.0 Dilated cardiomyopathy
CPT/HCPCS: 36415; 78452; 93017; 96374; A9500; J2785

== ENCOUNTER → 2025-08-15 14:22 | Outpatient (BNVA) | payer MEDICARE, SELFPAY | PROVIDERS: PCP Registered Nurse; Visit Provider Nurse Practitioner Family | DX: I25.10 Atherosclerotic heart disease of native coronary artery without angina pectoris (principal); I10 Essential (primary) hypertension; E78.5 Hyperlipidemia, unspecified; G62.9 Polyneuropathy, unspecified; Z72.0 Tobacco use; R06.02 Shortness of breath | CPT/HCPCS: 99213 ==

== ENCOUNTER 2025-08-21 07:08 | Outpatient (CLI) | payer MEDICARE, SELFPAY ==
--- NOTE | 2025-08-21 07:45 | USCV_ITS ---
Anderson Murray Age: 69 Gender: M : 1955 Exam Date: 08/21/2025 07:47 Ordering Phys: Louisa Verde NP Technologist: Exam [place] [facility] [place]: cp sob BP: 125 / 66 HR: 61 Rhythm: Sinus Technical Quality: Adequate MEASUREMENTS (Male / Female) Normal Values 2D ECHO LV Diastolic Diameter PLAX 5.1 cm 4.2 - 5.9 / 3.9 - 5.3 cm LV Systolic Diameter PLAX 3.2 cm IVS Diastolic Thickness 1.1 cm 0.6 - 1.0 / 0.6 - 0.9 cm IVS Systolic Thickness 2.0 cm LVPW Diastolic Thickness 1.3 cm 0.6 - 1.0 / 0.6 - 0.9 cm LVPW Systolic Thickness 1.6 cm LVOT Diameter 2.3 cm LV Ejection Fraction 2D Teich 66.6 % LV Ejection Fraction MOD 4C 71.9 % LV Ejection Fraction MOD 2C 70.7 % LV Ejection Fraction 2C AL 71.0 % LA Diameter 3.7 cm RA Systolic Volume 4C AL 53.2 ml RA Systolic Volume 4C MOD 50.8 ml Aorta at Sinotubular Diameter 3.3 cm IVC Diameter 1.6 cm M-MODE LA Ao Ratio MM 1.1 AV Cusp Separation MM 2.5 cm DOPPLER AV Peak Velocity 170.0 cm/s LVOT Peak Velocity 87.0 cm/s AV Area Cont Eq vti 2.5 cm squared AV Area Cont Eq pk 2.1 cm squared MV Peak Velocity 100.0 cm/s MV Area PHT 2.9 cm squared Mitral E to A Ratio 1.0 TV Peak Velocity 158.5 cm/s TR Peak Velocity 160.0 cm/s TR Peak Gradient 10.2 mmHg TV Peak E Velocity 100.0 cm/s PV Peak Velocity 123.0 cm/s FINDINGS Left Ventricle Normal left ventricular size, systolic function and wall thickness, with no regional wall motion abnormalities. Left ventricular ejection fraction is estimated at 65%. Right Ventricle Normal right ventricular size and systolic function. Right Atrium Normal right atrial size. Left Atrium Normal left atrial size. IA Septum Normal interatrial septum. Mitral Valve Structurally normal mitral valve. Trace mitral valve regurgitation. Aortic Valve Thickened aortic valve. No aortic valve stenosis. Tricuspid Valve Structurally normal tricuspid valve. Trace tricuspid valve regurgitation. TVPG = 10 mmHg. Normal right heart and pulmonary pressures. Pulmonic Valve Pulmonic valve not well visualized. Trace pulmonary valve regurgitation. Pericardium No pericardial effusion. Aorta Normal size aortic root and proximal ascending aorta. IVC Normal inferior vena cava. CONCLUSIONS Normal left ventricle size and normal LV systolic functions. Estimated LVEF normal 65%. Normal right ventricle size and RV systolic function. No significant valvular abnormality noted. Normal right heart and pulmonary pressures. Darrin Daigle MD (Electronically Signed) Final Date: 21 August 2025 09:35 S
== END 2025-08-21 07:09 | disposition home or self-care (01) ==
LOC: RAD 07:10
PROVIDERS: PCP Registered Nurse; Visit Provider Nurse Practitioner Family
DX: R06.02 Shortness of breath (principal); R07.9 Chest pain, unspecified
CPT/HCPCS: 93306